=== PATIENT | male | born 1945 | race Caucasian/White ===

== ENCOUNTER 2017-03-05 10:03 | Observation (INO) | payer MEDICARE ==
[~2017-03-05] VITALS: Ht 175.3 cm; Wt 79.5 kg
[2017-03-05] VITALS (11 sets, daily range): BP systolic 145; BP diastolic 78–86; PULSE 69–77; RESP 18–20; TEMP 98–98.2; O2SAT 90–99; Ht 175.3 cm; Wt 79.5 kg
[~2017-03-05 10:03] MED LIST: ALBU8.5H3 INH; AMLO10TA2 PO; BENA20TA3 PO; BISA5TAB12 PO; BUPR-51 PO; CARV12.52 PO; DOCU-175 PO; DOXA8TAB82 PO; FLUO20TA29 PO; FURO-154 PO; METH10TA2 PO; POTA20TA10 PO; RIVA20TA PO; SOTA80TA PO
--- NOTE | 2017-03-05 10:20 | NUR ---
OUTPUT LG FORMED BROWN STOOL INCONTINENT
--- NOTE | 2017-03-05 10:20 | NUR ---
DR CONWAY IN
[2017-03-05] MEDS ORDERED: DILT180C51 PO (10:21)
[2017-03-05] MEDS ORDERED: CARV25TA2 PO (10:24)
[2017-03-05] MEDS ORDERED: LORA1TAB3 PO (10:24)
[2017-03-05] MEDS ORDERED: ESCI20TA30 PO (10:24)
[2017-03-05] MEDS ORDERED: TORS20TA4 PO (10:24)
[2017-03-05] MEDS ORDERED: AMIO200T2 PO (10:24)
[2017-03-05] MEDS ORDERED: CLON2TAB4 PO (10:25)
[2017-03-05] MEDS ORDERED: NORMAL SALINE 1,000 ML IV ONE (10:26)
[2017-03-05] MEDS ORDERED: ALBUTEROL/IPRATROPIUM INHAL. 2.5mg-0.5mg/3ml Neb. AEROSOL ONE (10:30)
--- NOTE | 2017-03-05 10:40 | NUR ---
IMPROVED MENTATION. PT STILL HAS RESTLESSNESS FELY HIS LEGS BUT HE IS STARTING TO UNDERSTAND WHAT WE ASK & HE IS SAYING APPROPRIATE RESPONSES.
[2017-03-05 10:57] LABS: INR 1.65 (0.76-1.04)
[2017-03-05 11:01] LABS: HCT - HEMATOCRIT 44.2 % (41-53); MEAN CORPUSCULAR HGB 26.4 UUG (26-34); MEAN CORPUSCULAR HGB CONC(MCHC 29.4 GM/DL (31-37); MEAN CORPUSCULAR VOLUME 89.8 UM3 (80-100); MEAN PLATELET VOLUME 10.8 UM3 (9.4-12.4); RED BLOOD COUNT 4.92 M/MM3 (4.50-5.90); WBC - WHITE BLOOD COUNT 9.4 T/MM3 (4.5-11.0)
--- NOTE | 2017-03-05 11:05 | NUR ---
ROOM CHANGE TO EX 3 PER CART
[2017-03-05 11:10] LABS: ACETAMINOPHEN < 10 UG/ML (10-30); ALBUMIN 3.6 G/DL (3.5-5.0); ALBUMIN/GLOBULIN RATIO 1.2 RATIO (1.1-2.2); ALKALINE PHOSPHATASE 149 U/L (38-126); ALT (SGPT) 38 U/L (21-72); AST (SGOT) 34 U/L (17-59); BUN/CREATININE RATIO 25 RATIO (6-26); CALCIUM 8.6 MG/DL (8.4-10.2); CHLORIDE 93 MEQ/L (98-107); CK - CPK 77 U/L (55-170); CREATININE 1.3 MG/DL (0.8-1.5); ETHANOL <10 MG/DL (<10); GLOMERULAR FILTRATION RATE 55; GLUCOSE 168 MG/DL (75-110); POTASSIUM 3.3 MEQ/L (3.6-5); SALICYLATE < 1.0 MG/DL (2-20); SODIUM 148 MEQ/L (134-144); TOTAL PROTEIN 6.7 G/DL (6.3-8.2)
[2017-03-05 11:13] LABS: BLOOD, URINE NEGATIVE (NEGATIVE); COLOR,URINE YELLOW (YELLOW); LEUKOCYTE ESTERASE ,URINE NEGATIVE (NEGATIVE); NITRITE,URINE NEGATIVE (NEGATIVE)
[2017-03-05 11:15] LABS: ANION GAP 13 MEQ/L (5-15)
--- NOTE | 2017-03-05 11:15 | NUR ---
MENTATION CONTINUES TO IMPROVE. EASILY UNDERSTOOD. CARRIES A CONVERSATION WITH DAUGHTER. HE REMAINS RESTLESS BUT LESS SO. Addendum: 03/05/17 at 1613 by ARGELIA CONVERSES WITH NURSE NOT DAUGHTER
[2017-03-05 11:16] LABS: BAND NEUTROPHILS # 0.4 T/MM3; LYMPHOCYTES # (MANUAL) 0.5 T/MM3 (1-4.8); MONOCYTES # (MANUAL) 0.2 T/MM3 (0-0.8); NEUTROPHILS #(MANUAL)-ABSOLUTE 8.4 T/MM3 (1.8-7.7); TOTAL CELLS COUNTED 100 %
--- NOTE | 2017-03-05 11:17 | NUR ---
RT HERE FOR TRESSA
--- NOTE | 2017-03-05 11:21 | DI ---
Indication: ITS.REASON: dyspnea PROCEDURE: CHEST 1 VIEW: Encounter: Initial Comparison: January 23, 2016 FINDINGS: The lungs are clear. There is no abnormal airspace opacity, pleural effusion or pneumothorax identified. The heart size, pulmonary vasculature and mediastinum are within normal limits. No significant skeletal abnormality is seen. IMPRESSION: No acute cardiopulmonary abnormality. .
[2017-03-05 11:24] LABS: AMPHETAMINE SCREEN,URINE NEGATIVE; BARBITURATE SCREEN,URINE NEGATIVE; METHAMPHETAMINE SCREEN, URINE NEGATIVE
[2017-03-05 11:25] LABS: BENZODIAZEPINES SCREEN,URINE NEGATIVE; CANNABINOID SCREEN,URINE NEGATIVE; COCAINE SCREEN,URINE NEGATIVE; METHADONE SCREEN, URINE POSITIVE; OPIATE SCREEN,URINE NEGATIVE; PHENCYCLIDINE SCREEN,URINE NEGATIVE; TRICYCLIC ANTIDEPRESSANT,URINE NEGATIVE
--- NOTE | 2017-03-05 11:32 | NUR ---
FAMILY DAUGHTER HERE TO SEE PT
--- NOTE | 2017-03-05 11:35 | ERPDOC ---
Departure Impression Impression Referrals: ANDREW SOW MD (Family) HPI - CVA/Neuro General Chief Complaint: Altered Mental Status Stated Complaint: UNRESPONSIVE, HYPOXIA Time Seen by Provider: 10:26 HPI - CVA/NEURO Initial Comments 71-year-old male presents via EMS for mental status changes. He was found down, confused, initially nonresponsive. EMS attempted to intubate, but patient shifted making it difficult. They immediately went back to acting, kept his oxygen sats appropriate. He was given 0.8 mg of Narcan due to the probable overdose and loss of gag reflex. He did respond to this, became very agitated and unhappy. He was transported to the emergency department. He does not know where he is, is unable to answer questions or speaking coherent sentences. He did have a bowel movement on himself as he was being brought into the ED. Allergies: Coded Allergies: No Known Allergies (Unverified , 03/05/17) Past History Vaccines Hx Influenza Vaccination: Yes (FALL 2013) Hx Pneumococcal Vaccination: Yes (FALL 2013) Social History Smoking Status: Never smoker Second Hand Exposure: Yes Record Review Pertinent history updated: Yes Review of Systems Unable to Obtain ROS Due to: clinical condition, intoxication Physical Exam General General Nourishment: thin Distress Description Confusion, agitation Vitals and Pain Weight: Kilograms: 77.100 Height (feet): 5 Height (inches): 9.00 Triage Pain Scale: Normal Exams: Head: Normocephalic w/o trauma Eyes: Pupils are PERRLA w/ EOMI, No scleral icterus, irritation, or foreign bodies noted Chest/Resp: Clear all hinton, with good airflow, and symmetry bilaterally Abdomen: Bowel sounds positive, soft, non-tender, non-distended, no hepatosplenomegaly, masses or bruits noted : Penis without lesions, testicles normal size, and orientation, without tenderness Integumentary: No rashes, hives, or bruising noted, hair and nails, without abnormality Respiratory (brief) Comments Wheezing bilateral, difficulty pulling are in during breath Neurologic (brief) Comments Patient unable to respond in coherent sentences, unable to identify himself, he does know he is at [facility]. Differential Diagnoses Considering: Delirium, Dementia, DKA, Drug Overdose, Encephalitis, Psychogenic , TIA Progress Results/Orders Orders Procedure Category Date Status Time Cmp - Comprehensive LAB 03/05/17 In Process Metabolic 10:26 Cbc W/Auto LAB 03/05/17 Complete Diff-Reflex Manual 10:26 Ethanol LAB 03/05/17 In Process 10:26 Drug Screen LAB 03/05/17 [place] [facility] [place] Acetaminophen LAB 03/05/17 In Process 10:26 Salicylate LAB 03/05/17 In Process 10:26 Ua, Dip Wreflex LAB 03/05/17 Complete [employer] Professor 10:26 Ck - Cpk LAB 03/05/17 In Process 10:26 INR LAB 03/05/17 Complete 10:26 Troponin I W LAB 03/05/17 In Process Hemolysis Index 10:26 Myoglobin, Serum - Ams LAB 03/05/17 In Process 10:26 Chest 1 View RAD 03/05/17 Resulted 10:26 Bgm (Ed) EDM 03/05/17 Transmitted 10:26 EKG EKG 03/05/17 Taken 10:26 Iv Lock (Ed Only) EDM 03/05/17 Transmitted 10:26 Normal Saline (Normal PHA 03/05/17 Complete Saline Iv) 10:26 Nothing By Mouth (Ed EDM 03/05/17 Transmitted Only) 10:26 Albuterol/Ipratropium PHA 03/05/17 Complete (Duoneb) 10:30 Lab Results Laboratory Tests Test 03/05/17 10:43 03/05/17 11:04 White Blood Count 9.4T/MM3 Red Blood Count 4.92M/MM3 Hemoglobin 13.0GM/DL Hematocrit 44.2% Mean Corpuscular Volume 89.8UM3 Mean Corpuscular Hemoglobin 26.4UUG Mean Corpuscular Hemoglobin Concent 29.4GM/DL RDW Standard Deviation 53.5FL Platelet Count 192T/MM3 Mean Platelet Volume 10.8UM3 Immature Granulocyte % (Auto) % Neutrophils (%) (Auto) % Lymphocytes (%) (Auto) % Monocytes (%) (Auto) % Eosinophils (%) (Auto) % Basophils (%) (Auto) % Absolute Immature Granulocyte (auto T/MM3 Absolute Neutrophils (auto) T/MM3 Absolute Lymphocytes (auto) T/MM3 Absolute Monocytes (auto) T/MM3 Absolute Eosinophils (auto) T/MM3 Absolute Basophils (auto) T/MM3 Neutrophils % (Manual) 89.0% Band Neutrophils % 4.0% Lymphocytes % (Manual) 5.0% Monocytes % (Manual) 2.0% Absolute Neutrophils (Manual) 8.4T/MM3 Band Neutrophils # 0.4T/MM3 Lymphocytes # (Manual) 0.5T/MM3 Monocytes # (Manual) 0.2T/MM3 Red Cell Morphology Comment Normal Prothromb Time International Ratio 1.65 Turbidity < 20 Sodium Level 148MEQ/L Potassium Level 3.3MEQ/L Chloride Level 93MEQ/L Carbon Dioxide Level Pending Anion Gap 13MEQ/L Blood Urea Nitrogen 33.0MG/DL Creatinine 1.3MG/DL Glomerular Filtration Rate Calc 55 BUN/Creatinine Ratio 25RATIO Glucose Level 168MG/DL Glucometer 139mg/dL Calculated Osmolality 295MOSM/KG Calcium Level 8.6MG/DL Total Bilirubin 1.00MG/DL Icterus Index < 2 Aspartate Amino Transf (AST/SGOT) 34U/L Alanine Aminotransferase (ALT/SGPT) 38U/L Alkaline Phosphatase 149U/L Total Creatine Kinase 77U/L Myoglobin Pending Troponin I < 0.012ng/ml Total Protein 6.7G/DL Albumin 3.6G/DL Globulin 3.1G/DL Albumin/Globulin Ratio 1.2RATIO Chemistry Specimen Hemolysis < 15 Salicylates Level < 1.0MG/DL Acetaminophen Level < 10UG/ML Alcohol, Quantitative <10MG/DL Urine Collection Type Voided-not cc-midstr Urine Color Yellow Urine Turbidity Clear Urine pH 5.0 Urine Specific [place] 1.020 Urine Protein Negative Urine Glucose (UA) Negative Urine Ketones Negative Urine Blood Negative Urine Nitrite Negative Urine Bilirubin Negative Urine Urobilinogen 1.0EU/DL Urine Leukocyte Esterase Negative Urinalysis Comment Microscopic not ind. Urine Opiates Screen NegativeNG/ML Urine Oxycodone Screen NegativeNG/ML Urine Methadone Screen PositiveNG/ML Urine Propoxyphene Screen NegativeNG/ML Urine Barbiturates Screen NegativeNG/ML Urine Tricyclic Antidepressants NegativeNG/ML Urine Phencyclidine Screen NegativeNG/ML Urine Amphetamines Screen NegativeNG/ML Urine Methamphetamines Screen NegativeNG/ML Urine Benzodiazepines Screen NegativeNG/ML Urine Cocaine Screen NegativeNG/ML Urine Cannabinoids Screen NegativeNG/ML Medications Current ED Medications Sodium Chloride (Normal Saline IV) 1,000 ml @ 1,000 mls/hr Q1H ONCE IV Last administered on 4/19/17at 10:39; Start 03/05/17 at 10:26; Stop 03/05/17 at 11:25 ; Status DC Albuterol/ Ipratropium (Duoneb) 3 ml O ONCE AEROSOL ; Start 03/05/17 at 10:30; Stop 03/05/17 at 10:31; Status DC JENNIFER CONWAY MD Mar 05, 2017 11:35
[2017-03-05 11:40] LABS: CO2 - CARBON DIOXIDE 42 MEQ/L (22-30)
--- NOTE | 2017-03-05 12:00 | NUR ---
ASSESS PT IS RESTING BETTER. HAS IMPROVED WITH AERO TX & O2. VS STABLE
--- NOTE | 2017-03-05 13:10 | NUR ---
REPORT TO YELITZA CARR
--- NOTE | 2017-03-05 13:15 | NUR ---
ASSESS PT IS DOZING. VS STABLE. SAO2 IS 96%. O2 DECREASED TO 3.5 L/NC.
--- NOTE | 2017-03-05 13:31 | NUR ---
ADMIT ROOM 159 ASSIGNED BY CAMERON CARR.
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
--- NOTE | 2017-03-05 14:09 | NUR ---
REPORT GIVEN TO ISSAC CARR
--- NOTE | 2017-03-05 14:15 | NUR ---
ADMISSION TO MEDICAL VSS, ON 5L NC. RESPIRATIONS ARE SHALLOW. PERIPHERAL IV IN PLACE. PATIENT OCCASIONALLY TWITCHES; PT AND SAY THIS IS NORMAL BUT GRANDDAUGHTER SAYS IT IS NOT. ANSWERS ORIENTATION QUESTIONS APPROPRIATELY, EVEN WITH SARCASM. REMAINS LETHARGIC AND SLEEPY.
[2017-03-05] MEDS: 1/2 NS w/ KCL 20mEq 1,000 ML IV SCH (14:39)
[2017-03-05 18:26] LABS: BUN/CREATININE RATIO 28 RATIO (6-26); CALCIUM 8.3 MG/DL (8.4-10.2); CHLORIDE 96 MEQ/L (98-107); CK - CPK 143 U/L (55-170); CREATININE 1.2 MG/DL (0.8-1.5); GLOMERULAR FILTRATION RATE 60; GLUCOSE 117 MG/DL (75-110); POTASSIUM 3.4 MEQ/L (3.6-5); SODIUM 146 MEQ/L (134-144)
[2017-03-05 18:32] LABS: ANION GAP 8 MEQ/L (5-15)
[2017-03-05 18:33] LABS: CO2 - CARBON DIOXIDE 42 MEQ/L (22-30)
--- NOTE | 2017-03-05 18:42 | NUR ---
SHIFT SUMMARY VSS. PATIENT ON BIPAP AT 40%. OFF FOR ABOUT 15 MINUTES TO VISIT WITH COMPANY AND TO DRINK. MOE REMAINS PATENT AND DRAINING. REMAINS ALERT AND ORIENTED, CONTINUES TO JOKE WITH STAFF AND FAMILY. D5 1/2NS WITH 20 MEQ KCL AT 100CC/HR.
[2017-03-05] MEDS ORDERED: CARVEDILOL 25 MG TABLET PO SCH (21:00)
--- NOTE | 2017-03-05 21:45 | NUR ---
Family Family present at shift change. Bong, son, visited in room and requested update. Update given. Mason, Son, called, and was also given update at this time.
--- NOTE | 2017-03-05 23:33 | NUR ---
Status Pt awoke to verbal stimuli at 2000, and responded to questions appropriately and obeyed commands. Pt oriented x3. Pt complained of pain at 2240. Notified pt that methadone will be restarted in the morning. Pt became agitated at hearing that news and at Bi-PAP. RT readjusted Bi-PAP and pt was able to calm down. Notified Dr. Bravo about agitation from Bi-Pap and lack of analgesics available on eMAR. Dr. Bravo ordered Dilaudid as charted. Report given to BRUNO Bowman.
[2017-03-05] MEDS: HYDROMORPHONE 2mg/ml INJECTION IV PRN (23:50)
[2017-03-06 00:10] VITALS: BP 144/88; PULSE 72; RESP 12; TEMP 98.3; O2SAT 98
[2017-03-06] MEDS: 1/2 NS w/ KCL 20mEq 1,000 ML IV SCH (00:43)
[2017-03-06 01:15] VITALS: O2SAT 98
[2017-03-06 03:02] VITALS: O2SAT 98
[2017-03-06] MEDS: HYDROMORPHONE 2mg/ml INJECTION IV PRN (04:14)
--- NOTE | 2017-03-06 04:20 | NUR ---
rest sleeps restfully for several hours after Dilaudid given, BiPAP in place, HOB elevated. Now restless, states hurts all over. Dilaudid repeated
--- NOTE | 2017-03-06 05:30 | NUR ---
comfort has been restless this last hour, states no relief with Dilaudid. Assisted to reposition with no relief. Pt. requests to be taken off BiPAP, placed to 3L/nc
[2017-03-06 05:38] LABS: BASOPHILS % (AUTO) 0.2 % (0-2); EOSINOPHILS # (AUTO) 0.1 T/MM3 (0-0.5); EOSINOPHILS % (AUTO) 0.6 % (0-4); HCT - HEMATOCRIT 41.6 % (41-53); HGB - HEMOGLOBIN 12.6 GM/DL (13.5-17.5); IMMATURE GRANULOCYTE # (AUTO) 0.01 T/MM3 (0.00-0.03); IMMATURE GRANULOCYTE % (AUTO) 0.1 % (0.0-0.5); LYMPHOCYTES # (AUTO) 1.1 T/MM3 (1-4.8); LYMPHOCYTES % (AUTO) 11.8 % (23-45); MEAN CORPUSCULAR HGB 26.3 UUG (26-34); MEAN CORPUSCULAR HGB CONC(MCHC 30.3 GM/DL (31-37); MEAN CORPUSCULAR VOLUME 86.7 UM3 (80-100); MEAN PLATELET VOLUME 10.9 UM3 (9.4-12.4); MONOCYTES % (AUTO) 10.8 % (0-9.0); NEUTROPHILS #(AUTO)-ABSOLUTE 7.3 T/MM3 (1.8-7.7); NEUTROPHILS % (AUTO) 76.5 % (33-66); WBC - WHITE BLOOD COUNT 9.6 T/MM3 (4.5-11.0)
[2017-03-06 05:43] VITALS: O2SAT 95
[2017-03-06 05:55] LABS: BUN/CREATININE RATIO 27 RATIO (6-26); CALCIUM 8.6 MG/DL (8.4-10.2); CHLORIDE 94 MEQ/L (98-107); CREATININE 1.2 MG/DL (0.8-1.5); GLOMERULAR FILTRATION RATE 60; GLUCOSE 107 MG/DL (75-110); POTASSIUM 3.8 MEQ/L (3.6-5); SODIUM 142 MEQ/L (134-144)
--- NOTE | 2017-03-06 06:00 | NUR ---
comfort now relaxes, dozes to sleep. Resp. unlabored
[2017-03-06 06:01] LABS: ANION GAP 7 MEQ/L (5-15)
[2017-03-06 06:05] LABS: CO2 - CARBON DIOXIDE 41 MEQ/L (22-30)
[2017-03-06 07:39] VITALS: BP 161/92; PULSE 85; RESP 18; TEMP 98.8; O2SAT 90
[2017-03-06] MEDS ORDERED: CARVEDILOL 12.5 MG TABLET PO SCH (08:00)
[2017-03-06] MEDS: METHADONE 10 MG TABLET PO SCH ×2 (08:31→13:35)
[2017-03-06] MEDS ORDERED: ESCITALOPRAM 20 MG PO SCH (09:00)
[2017-03-06] MEDS ORDERED: DOXAZOSIN 8 MG PO SCH (09:00)
[2017-03-06] MEDS ORDERED: POM AMIODARONE 200 MG TABLET PO SCH (09:00)
[2017-03-06] MEDS ORDERED: DILTIAZEM CD 180 MG PO SCH (09:00)
[2017-03-06] MEDS ORDERED: BENAZEPRIL 20 MG PO SCH (09:00)
--- NOTE | 2017-03-06 10:06 | PNPDOC ---
Subjective Date DATE: 03/06/17 TIME: 09:57 Subjective F/U: Altered mental status, CO2 narcosis, respiratory suppression Doing much better today. Awake and alert, communicates well. Breathing well off BiPAP-maintain saturation on baseline 3L. Feels breathing at baseline. No nausea -tolerating clear liquids. Had stool today. Objective Vital Signs Vital signs Vital Signs Date Time Temp Pulse Resp B/P Pulse Ox O2 Delivery O2 Flow Rate FiO2 03/06/17 07:39 98.8 85 18 161/92 90 Nasal Cannula 3.00 03/06/17 03:02 35 Height (Feet): 5 Height (Inches): 9.00 Weight (Kilograms): 79.500 General General Appearance: Alert, Orientated x 3, Well Nourished, Well Developed, Cooperative, Looks Stated Age Eyes (Brief) Eyes: FOUND: EOMI, PERRL, NOT FOUND: scleral icterus ENMT (Brief) ENMT: FOUND: hearing intact, mucosa moist (No thrush) Neck (Brief) Neck: FOUND: midline, NOT FOUND: nuchal rigidity, spasm Respiratory (Brief) Respiratory: FOUND: other (Decrease bilaterally, little air movement. No distress on O2 ), NOT FOUND: clear all hinton, rales, wheezes Cardiovascular (Brief) Cardiac: FOUND: regular rate, regular rhythm, NOT FOUND: pedal edema Abdomen (Brief) Abdominal: FOUND: BS normo active x4, soft, NOT FOUND: distended, tender (Brief) Male: FOUND: other (Winkler present ) Extremities (Brief) Extremity : Side: Bilateral Extremity: leg Extremity Finding: NOT FOUND: edema Musculoskeletal (Brief) Musculoskeletal: FOUND: extremities move equally, NOT FOUND: deformity, spasm Integumentary (Brief) Integumentary: FOUND: dry, warm Neurologic (Brief) Neurological: FOUND: cranial 2-12 intact, motor (Intact ) Psychiatric (Brief) Psychiatric: FOUND: alert, attentive, normal affect, oriented Laboratory Laboratory Laboratory Tests 03/05/17 10:43 03/05/17 17:55 03/06/17 05:21 Laboratory Tests 03/05/17 10:43 03/06/17 05:21 Assessment & Plan Problems: (1) Respiratory failure with hypoxia and hypercapnia Status: Chronic Qualifiers: Chronicity: acute on chronic Qualified Codes: J96.21 - Acute and chronic respiratory failure with hypoxia; J96.22 - Acute and chronic respiratory failure with hypercapnia (2) Altered mental state Status: Resolved Qualifiers: Coma timing: in the field (EMT or ambulance) (3) Elevated CO2 level Status: Acute (4) Accidental methadone overdose Status: Resolved Qualifiers: Encounter type: initial encounter Qualified Codes: T40.3X1A - Poisoning by methadone, accidental (unintentional), initial encounter (5) Chronic pain disorder Status: Chronic Assessment & Plan: Uses Methadone chronically (6) COPD (chronic obstructive pulmonary disease) Status: Chronic (7) CHF (congestive heart failure) Status: Chronic (8) A-fib Status: Chronic Qualifiers: Atrial fibrillation type: chronic Qualified Codes: I48.2 - Chronic atrial fibrillation (9) Tobacco dependence Status: Chronic Plan/Intensity of Service Advance diet. Will d/c IVF and Winkler. Nursing to ambulated QID. IS and Acapella to help his chronic respiratory failure. Continue home O2. Home methadone restarted. Anticipate discharge to home later today if continues to do well. 1545 - reassessed pt. Resting in bed, but easily wakened. Doing well, feeling much better. Has been up and ambulatory without problems. Eating well. Breathing feels at baseline. Will d/c to home. Continue home medications. Encourage use of Acapella and IS to help respiratory status. Encourage tobacco cessation. Will f/u with Dr Chen in 1 week. See orders for details. DVT Prophylaxis: SCD'S Code Status Full Code Hospital Course Summary Disclaimer The hospital course summary below is not to be considered part of the above Progress Note. Hospital Course Summary 03/05 Admit to outpatient observation under care of for altered mentation , probable accidental methadone overdose Will monitor mentation carefully. Given elevated CO2 will place patient on Bi-pap on admission. Will obtain ABG now. Repeat BMP this evening at 1800 Patient on cardiac telemetry to monitor for dysrhythmias. It appears patient is chronically in atrial fibrillation. Did review old records. Patient was placed on Xarel[place] [address] Pineda. When speaking with patient's son (who is a nurse). He does not think patient is chronically anticoagulated. Will start half-normal saline with 20 KCl to run at 100 ML per hour for gentle hydration given hypernatremia and hypokalemia. SCDs to bilateral lower extremity for DVT prophylaxis Check CBC and BMP tomorrow morning to follow blood counts, renal function and electrolytes. Will discuss further plan of care with attending, Dr. Kirkland. At time of discharge medical care will return to primary care provider. Dr. Chen 03/06 Doing much better today. Awake and alert, communicates well. Breathing well off BiPAP-maintain saturation on baseline 3L. Feels breathing at baseline. No nausea -tolerating clear liquids. Had stool today. Advance diet. Will d/c IVF and Winkler. Nursing to ambulated QID. IS and Acapella to help his chronic respiratory failure. Continue home O2. Home methadone restarted. Anticipate discharge to home later today if continues to do well. 1545 - reassessed pt. Resting in bed, but easily wakened. Doing well, feeling much better. Has been up and ambulatory without problems. Eating well. Breathing feels at baseline. Will d/c to home. Continue home medications. Encourage use of Acapella and IS to help respiratory status. Encourage tobacco cessation. Will f/u with Dr Chen in 1 week. See orders for details. TUSHAR KIRKLAND MD Mar 06, 2017 10:01
--- NOTE | 2017-03-06 11:24 | NUR ---
status N.O. to IVL and DC [place]. pt tolerated well.
--- NOTE | 2017-03-06 14:33 | NUR ---
CM CM IN TO VISIT WITH PT. CM EXPLAINED ROLE AND PROVIDED CONTACT INFORMATION. PT REPORTS HE USES HOME O2, FAMILY REPORT THAT HE USES [employer]. PT AND FAMILY DENY HOME NEEDS AND ARE AWARE TO CONTACT CM SHOULD NEEDS [facility].
[2017-03-06] MEDS ORDERED: LORAZEPAM 1 MG TABLET PO SCH (15:00)
[2017-03-06 15:52] VITALS: BP 123/65; PULSE 73; RESP 16; TEMP 98.8; O2SAT 95
--- NOTE | 2017-03-06 16:14 | NUR ---
status/DC Pt A/O x3, does fall a sleep easy, but wakes easily. V/S stable on 3L, this is pt baseline for home. Pt ambulated around unit with 1x assist. Cathi DC'd, pt urinated after. Pt tolerated AAT diet. IV site DC'd, cath tip intact. Pt dressed and personal things gathered. Waiting for ride. DC instructions given and no questions at this time.
[2017-03-06] MEDS ORDERED: POM CARVEDILOL 25 MG TABLET PO SCH (17:30)
--- NOTE | 2017-03-07 11:38 | DSF ---
Date of initiation of observation 03/05/2017. Date of discharge 03/06/2017. ADMISSION DIAGNOSIS Altered mental status. DISCHARGE DIAGNOSIS [id number] hypoxic/hypercapnic respiratory failure. ASSOCIATED CONDITIONS AND COMPLICATIONS Altered mental status secondary to CO2 narcosis - improved. CO2 narcosis. Accidental methadone overdose - suspected. Chronic pain syndrome. COPD. Congestive heart failure - NOS. Chronic atrial fibrillation. Tobacco dependency. Hypernatremia (present on admission) - improved. Hypokalemia (present on admission) - improved PROCEDURES None CONSULTS RT for tobacco cessation. CLINICAL RESUME Mr. Juarez is a 71-year-old gentleman who presents to [facility] Emergency Room via [facility] secondary to being found unresponsive. He was initially found with oxygen saturations in the 60s. EMS attempted to intubate the patient, however that was unsuccessful. He was then bagged to maintain adequate oxygenation. He was given Narcan IV which did cause him to wake up and become combative. He was found to be incontinent of stool during this episode. Since arrival to emergency room he remains nonverbal, but is maintaining adequate saturations on nasal cannula. While in emergency room he did undergo further evaluation. Chest x-ray showed no acute infiltrate. Lab was unremarkable other than carbon dioxide elevated at 42. Tox screen is positive for methadone. Given his significant decrease in mentation and concern of possible overdose of methadone, hospitalist service was contacted and patient was placed in outpatient observation for further evaluation and treatment. For complete details of the H&P, refer to that document. LABORATORY White blood count is 9.4 with hemoglobin 13.0, hematocrit 44.2, MCV 89.8 and platelets 192,000. Serum sodium is 148, potassium 3.3, chloride 93, CO2 42, BUN 13 with creatinine 1.3, GFR 55 and blood glucose 168. Transaminases are unremarkable. Total CK is 77. Troponin I is less than 0.012. INR is 1.65. ABG reveals pH 7.360, pCO2 85 and pO2 57 while on the 5 liters of oxygen per nasal cannula. UA is completely unremarkable. Salicylate is less than 1 with acetaminophen less than 10 and quantitative alcohol less than 10. Urine for drugs of abuse is positive only for methadone. (The patient does have a prescription for methadone for his chronic pain.) HOSPITAL COURSE The patient was placed in outpatient observation status at [facility] under the care of Dr. Kirkland. Winkler catheter was placed to monitor urinary output. In light of his elevated CO2, BiPAP was initiated to help blow off carbon dioxide. Cardiac telemetry was initiated. IV fluids of half-normal saline with 20 mEq potassium was started at 100 ml an hour to provide hydration and also help correct his hypernatremia and hypokalemia. SCDs were initiated for DVT prophylaxis. Initially he was made n.p.o. secondary to his decreased level of consciousness. The patient did tolerate the BiPAP well. On early evening of day of presentation he started to become more awake and alert. At that time diet was advanced to clears. He did tolerate this well. Home medications were restarted (with methadone to restart the next morning). Overnight he was having some pain and discomfort until hospitalist did have order for p.r.n. Dilaudid. He did tolerate this without any episodes of respiratory suppression. By hospital day #1 he was doing much, much better. He was awake and alert. We were able to discontinue IV fluids and Winkler. Diet was advanced to regular. He was taking this well. Nursing did ambulate the patient and the patient was to ambulate without limitations. His serum sodium normalized to 142 with potassium improving to 3.8. Creatinine was 1.2. White count and hemoglobin were showing stability. Vitals were stable and he was afebrile. He was maintaining saturations in the 90-95% range on his baseline 3 liters. In light of his significant improvement, he was able to be discharged to home. Narrative disclaimer: Above narrative is a brief summary of the patient's hospitalization; for complete details of the hospital course, refer to the medical record. DISCHARGE CONDITION Stable/good. DIET Low sodium. ACTIVITIES As tolerated. MEDICATIONS Albuterol HFA 2 puffs q.6h. p.r.n. wheezing. Amiodarone 200 mg daily. Benazepril 20 mg daily. Coreg 12.5 mg b.i.d. Clonazepam 2 mg t.i.d. p.r.n. Diltiazem 180 mg daily. Doxazosin 8 mg daily. Celexa 20 mg daily. Lorazepam 1 mg t.i.d. Methadone 10 mg q.i.d. Torsemide 20 mg daily. FOLLOWUP The patient will follow with Dr. Chen in one week, calling or returning sooner as problems or need indicate. INSTRUCTION TO PATIENT The patient was instructed on his diagnosis and treatments provided. He was encouraged to be adherent with medications and not double up dose of this pain or anxiolytic medications. We did provide and educate patient on use of incentive spirometer and Acapella during hospitalization - encouraged patient to continue to use these in the outpatient setting. He was encouraged on tobacco cessation. We encouraged him on healthy well-rounded diet and activities. He will watch for temperature greater than 100.4, worsening respiratory status. Should these or any other concerns arise, he could be in contact with his primary provider. If symptoms become quite dire, he can present to emergency room for acute evaluation. He voiced understanding of the above. Time spent with discharge greater than 35 minutes. CASSANDRA
== END 2017-03-06 17:00 | disposition home or self-care (01) ==
LOC: ED 10:03 → EDHOLD 13:20 → MED 14:15
PROVIDERS: ADMIT Internal Medicine; ATTEND Hospitalist
DX: J96.21 Acute and chronic respiratory failure with hypoxia (principal); J96.22 Acute and chronic respiratory failure with hypercapnia; G89.4 Chronic pain syndrome; J44.9 Chronic obstructive pulmonary disease, unspecified; I50.9 Heart failure, unspecified; I48.2 Chronic atrial fibrillation; E87.0 Hyperosmolality and hypernatremia; E87.6 Hypokalemia; R15.9 Full incontinence of feces; R41.82 Altered mental status, unspecified; K59.09 Other constipation; F17.200 Nicotine dependence, unspecified, uncomplicated; Z79.899 Other long term (current) drug therapy
CPT/HCPCS: 36415; 36600; 51702; 71010; 80048; 80053; 80307; 81003; 82550; 82803; 82948; 83874; 84484; 85025; 85610; 93005; 94640; 94664; 94667; 96361; 96374; 96375; 99284; 99406; A9270; G0378; G6053; J1170; J7030; 80306; 94002; 94003; 99218